=== PATIENT | female | born 1950 | race Caucasian/White ===

== ENCOUNTER → 2020-08-15 | Outpatient (REF) | payer MEDICARE | LOC: M LAB REF 12:36 | PROVIDERS: ATTEND Nurse Practitioner Family | DX: N39.0 Urinary tract infection, site not specified (principal) ==

== ENCOUNTER → 2020-10-25 | Outpatient (REF) | payer MEDICARE ==
[2020-10-25 12:14] LABS: ALT/SGPT 21 U/L (12-78); BLOOD UREA NITROGEN 13 MG/DL (7-18); CALCIUM LEVEL 9.7 MG/DL (8.8-10.2); CARBON DIOXIDE LEVEL 29 MEQ/L (21-32); CHLORIDE LEVEL 105 MEQ/L (98-107); CHOLESTEROL LEVEL 209 MG/DL (<200); CREATININE FOR GFR 0.71 MG/DL (0.55-1.30); GLOMERULAR FILTRATION RATE > 60.0 (>39); GLUCOSE, FASTING 140 MG/DL (70-100); HDL CHOLESTEROL 62 MG/DL (>40); LDL CHOLESTEROL 129 MG/DL (<100); NON-HDL-C 147 MG/DL; POTASSIUM SERUM 4.2 MEQ/L (3.5-5.1); SODIUM LEVEL 139 MEQ/L (136-145); TOTAL PROTEIN 7.4 GM/DL (6.4-8.2); TRIGLYCERIDES LEVEL 91 MG/DL (<150)
[2020-10-25 12:37] LABS: HEMOGLOBIN A1c 6.1 %
== END ==
LOC: M PLALAB 10:02
PROVIDERS: ATTEND Nurse Practitioner Family
DX: Z00.00 Encounter for general adult medical examination without abnormal findings (principal); Z83.3 Family history of diabetes mellitus; Z79.899 Other long term (current) drug therapy

== ENCOUNTER 2020-12-06 12:30 | Emergency (ER) | payer MEDICARE ==
[~2020-12-06] VITALS: Ht 152.4 cm; Wt 83.2 kg
--- NOTE | 2020-12-06 14:15 | REP ---
INDICATION: swelling. COMPARISON: None. TECHNIQUE: Multiple ultrasonographic images of the deep venous structures of the right lower extremity were obtained from the inguinal ligament to the ankle. Venous compression techniques, color doppler imaging, and augmentation techniques were also obtained where appropriate. As per the ACR guidelines the anterior tibial vein can not be effectively evaluated. Only compression techniques in the calf on the peroneal and posterior tibial veins was attempted/performed. FINDINGS: There is no abnormal echogenic material seen within any of the visualized deep venous structures that would suggest acute thrombosis. Coaptation is unremarkable throughout. Doppler interrogation shows an expected response to respiratory variability and augmentation in the thigh. Compression techniques in the calf showed no abnormality. The color flow images show what appears to be a normal vascular pattern throughout the thigh. IMPRESSION: There is no ultrasonographic evidence of deep venous thrombosis involving any of the visualized deep venous structures of the right lower extremity as described above. <Electronically signed by Roverto Yeager > 12/06/20 [id number]
[2020-12-06 16:16] LABS: BASO % 0.3 % (0.0-1.0); EOS # 0.2 10^3/uL (0.0-0.5); EOS % 2.6 % (0.0-3.0); HEMATOCRIT 41.7 % (36.0-47.0); HEMOGLOBIN 13.9 g/dl (12.0-15.5); LYMPH # 1.6 10^3/uL (1.5-5.0); LYMPH % 20.6 % (24.0-44.0); MEAN CORPUSCULAR HGB CONC 33.3 g/dl (32.0-36.5); MEAN CORPUSCULAR VOLUME 92.9 fl (80.0-96.0); MONO # 0.5 10^3/uL (0.0-0.8); MONO % 6.2 % (2.0-8.0); NEUTROPHILS # 5.4 10^3/uL (1.5-8.5); PLATELET COUNT, AUTOMATED 283 10^3/uL (150-450); RED BLOOD COUNT 4.49 10^6/uL (4.00-5.40); WHITE BLOOD COUNT 7.7 10^3/uL (4.0-10.0)
[2020-12-06 16:41] LABS: C REACTIVE PROTEIN QUANTITATIV 0.34 MG/DL (0.00-0.30); CK-MB VALUE MASS 1.5 NG/ML (<3.6); MB/CK RELATIVE INDEX 1.61 (< OR =4)
[2020-12-06 16:51] LABS: ERYTHROCYTE SEDIMENTATION RATE 15 mm/hr (0-30)
--- NOTE | 2020-12-06 17:09 | REP ---
INDICATION: unable to walk, NKI. COMPARISON: None TECHNIQUE: AP frog-lateral views FINDINGS: There is mild asymmetric hip joint space narrowing without prominent marginal osteophytosis. There is no fracture dislocation. IMPRESSION: Chronic changes <Electronically signed by Roverto Yeager > 12/06/20 [id number]
--- NOTE | 2020-12-06 17:12 | REP ---
INDICATION: unable to walk, NKI, pain over patella into tib/fib COMPARISON: None. TECHNIQUE: Five views right knee. FINDINGS: There is no evidence of acute fracture, dislocation, or intrinsic bone disease.There appears to be a small joint effusion. IMPRESSION: No fracture or dislocation. Small joint effusion. <Electronically signed by Byron Tilley > 12/06/20 [id number]
--- NOTE | 2020-12-06 17:15 | REP ---
INDICATION: unable to bear weight, swelling COMPARISON: None. TECHNIQUE: Four views right ankle. FINDINGS: There is no evidence of acute fracture, dislocation, or intrinsic bone disease.Mild spurring of the medial malleolus as well as lateral malleolus. The ankle mortise is anatomic. There is mild posterior and inferior calcaneal spurring. IMPRESSION: No radiographic evidence of fracture or dislocation. <Electronically signed by Byron Tilley > 12/06/20 [id number]
[2020-12-06] MEDS ORDERED: methocarbamoL 500 MG TAB PO ONE ×3 (17:25→20:20)
[2020-12-06] MEDS ORDERED: METH-1164 PO (18:06)
[2020-12-06] MEDS ORDERED: ROLLMIS8 XX ×2 (18:06→18:16)
--- NOTE | 2020-12-06 18:56 | REPVR ---
PROCEDURE INFORMATION: Exam: CT Lumbar Spine Without Contrast Exam date and time: 12/06/2020 5:46 PM Age: 70 years old Clinical indication: Other: New onset difficulty walking and weight bearing TECHNIQUE: Imaging protocol: Computed tomography images of the lumbar spine without contrast. Radiation optimization: All CT scans at this facility use at least one of these dose optimization techniques: automated exposure control; mA and/or kV adjustment per patient size (includes targeted exams where dose is matched to clinical indication); or iterative reconstruction. COMPARISON: [facility] Hip, Ap,Lat RIGHT 12/06/2020 4:15 PM FINDINGS: Vertebrae: 3 mm of grade 1 degenerative anterolisthesis of L4 on L5. No acute fracture seen. Diffuse osseous demineralization. L1-L2: No significant disc protrusion. No severe spinal canal stenosis. No significant neural foraminal narrowing. L2-L3: Mild disc bulge as well as mild to moderate facet arthropathy. Mild central spinal canal and neural foraminal stenoses. L3-L4: Moderate left eccentric diffuse disc bulge, facet arthropathy and ligamentum flavum buckling. Central spinal canal stenosis is [id number]. Mild left neural foraminal stenosis. No significant right neural foraminal narrowing. L4-L5: Anterolisthesis. Diffuse disc bulge with calcification of posterior disc annulus. Marked facet arthropathy and ligamentum flavum buckling. Central spinal canal stenosis is moderate. Lateral recess stenoses are probably severe. Severe left and moderate right neural foraminal stenoses. L5-S1: Mild diffuse disc bulge as well as severe left and moderate right facet arthropathy. No significant central spinal canal stenosis. Mild right neural foraminal stenosis. No significant left neural foraminal narrowing. Mediastinum: Small hiatal hernia. Stomach and bowel: There is colonic diverticulosis. Vasculature: The aorta demonstrates atherosclerosis. Soft tissues: Unremarkable. There is a 1.3 cm cyst in the upper pole of the right kidney. No specific follow-up is indicated. IMPRESSION: 1. No acute findings identified. 2. Grade 1 degenerative anterolisthesis of L4 on L5. 3. High-grade central spinal canal, lateral recess and neural foraminal stenoses at L4-L5. Electronically signed by: Lissa Joseph On 12/06/2020 18:55:17 PM
--- NOTE | 2020-12-06 20:11 | REPVR ---
PROCEDURE INFORMATION: Exam: MR Lumbar Spine Without Contrast Exam date and time: 12/06/2020 7:43 PM Age: 70 years old Clinical indication: Abnormal findings; Abnormal xray or scan of thoracolumbar spine; Additional info: High grade central spinal canal, l4-l5 stenosis TECHNIQUE: Imaging protocol: Multiplanar magnetic resonance images of the lumbar spine without intravenous contrast. COMPARISON: CT Spine, lumbar w/o contrast 12/06/2020 5:45 PM FINDINGS: Vertebrae: 3 mm of grade 1 degenerative anterolisthesis of L4 on L5. No acute fracture seen. Spinal cord: The conus medullaris ends normally. Disc desiccation throughout. No significant disc height loss. Mild multilevel prevertebral spondylosis. L1-L2: Mild disc bulge and facet arthropathy. No stenoses. L2-L3: Asvk-yt-[id number] diffuse disc bulge, facet arthropathy and ligamentum flavum buckling. The central spinal canal remains patent. No significant foraminal stenoses. L3-L4: Mild diffuse disc bulge as well as mild to moderate facet arthropathy and ligamentum flavum buckling. A small left foraminal disc protrusion with high-intensity zone. Central spinal canal stenosis is mild. Mildly limited assessment of the foramina due to motion artifacts. Left neural foraminal stenosis is probably mild. No significant right neural foraminal narrowing. L4-L5: Anterolisthesis. Moderate diffuse disc bulge as well as marked facet arthropathy and ligamentum flavum buckling. A shallow component of soft central disc protrusion measures approximately 3 mm in AP dimension, image 7 series 601. Central spinal canal stenosis is moderate. The lateral recesses are narrowed near the L5 nerve roots, in particular on the right. Severe left and [id number] right neural foraminal stenoses. L5-S1: Mild right eccentric disc bulge as well as severe left and moderate right facet arthropathy. The central spinal canal remains patent. Right lateral recess stenosis is mild. Mild right neural foraminal stenosis. No significant left neural foraminal narrowing. Soft tissues: Unremarkable. IMPRESSION: 1. Images are mildly motion degraded. 2. Grade 1 degenerative anterolisthesis of L4 on L5. 3. Moderate central spinal canal stenosis at L4-L5. The lateral recesses are narrowed near the L5 nerve roots, in particular on the right. Left neural foraminal stenosis is severe. Electronically signed by: Lissa Joseph On 12/06/2020 20:10:48 PM
[2020-12-06 20:27] VITALS: BP 125/84
--- NOTE | 2020-12-07 11:28 | ED PDOC ---
Post-Departure Follow-Up dr paloimno and ashley jasso faxed formal report of mr ls spine for fu Sapna Bland MD Dec 07, 2020 11:28
== END 2020-12-06 21:02 | disposition home or self-care (01) ==
LOC: M ED 12:30
DX: R26.2 Difficulty in walking, not elsewhere classified (principal); M54.17 Radiculopathy, lumbosacral region; M48.061 Spinal stenosis, lumbar region without neurogenic claudication; M43.16 Spondylolisthesis, lumbar region; Z88.0 Allergy status to penicillin

== ENCOUNTER → 2022-01-30 | Outpatient (CLI) | payer MEDICARE ==
[~2022-01-30] MED LIST: METH-1164 PO; ROLLMIS8 XX
[2022-01-30 10:56] LABS: BASO % 0.4 % (0.0-1.0); EOS # 0.2 10^3/uL (0.0-0.5); EOS % 1.8 % (0.0-3.0); HEMATOCRIT 38.9 % (36.0-47.0); HEMOGLOBIN 12.9 g/dl (12.0-15.5); LYMPH # 2.3 10^3/uL (1.5-5.0); LYMPH % 21.5 % (24.0-44.0); MEAN CORPUSCULAR HEMOGLOBIN 31.5 pg (27.0-33.0); MEAN CORPUSCULAR HGB CONC 33.2 g/dl (32.0-36.5); MEAN CORPUSCULAR VOLUME 95.1 fl (80.0-96.0); MONO # 0.7 10^3/uL (0.0-0.8); MONO % 6.4 % (2.0-8.0); NEUTROPHILS # 7.4 10^3/uL (1.5-8.5); NEUTROPHILS % 69.2 % (36.0-66.0); PLATELET COUNT, AUTOMATED 327 10^3/uL (150-450); RED BLOOD COUNT 4.09 10^6/uL (4.00-5.40); WHITE BLOOD COUNT 10.7 10^3/uL (4.0-10.0)
[2022-01-30 11:30] LABS: ALBUMIN 3.9 GM/DL (3.2-5.2); BILIRUBIN,TOTAL 0.4 MG/DL (0.2-1.0); CALCIUM LEVEL 9.7 MG/DL (8.8-10.2); CREATININE FOR GFR 1.22 MG/DL (0.55-1.30); GLOMERULAR FILTRATION RATE 46.1 (>39); POTASSIUM SERUM 4.1 MEQ/L (3.5-5.1); TOTAL PROTEIN 7.9 GM/DL (6.4-8.2)
== END ==
LOC: M PLALAB 08:27
PROVIDERS: ATTEND Nurse Practitioner Family
DX: L03.116 Cellulitis of left lower limb (principal)

== ENCOUNTER → 2023-08-05 | Outpatient (CLI) | payer MEDICARE ==
[2023-08-05 18:02] LABS: HEMOGLOBIN A1c 6.5 % (4.0-6.0)
[2023-08-05 18:14] LABS: ALBUMIN 4.1 G/DL (3.2-5.2); ALKALINE PHOSPHATASE 103 U/L (46-116); ALT/SGPT 21 U/L (7.0-40); AST/SGOT 16 U/L (<34); BILIRUBIN,TOTAL 0.8 MG/DL (0.3-1.2); BLOOD UREA NITROGEN 20 MG/DL (9-23); CALCIUM LEVEL 9.5 MG/DL (8.3-10.6); CARBON DIOXIDE LEVEL 30 MMOL/L (20-31); CHLORIDE LEVEL 106 MMOL/L (98-107); CHOLESTEROL LEVEL 210 MG/DL (<200); CHOLESTEROL RISK RATIO 3.52 (<5); CREATININE FOR GFR 0.74 MG/DL (0.55-1.30); GLOMERULAR FILTRATION RATE > 60.0 (>39); GLUCOSE, FASTING 92 MG/DL (74-106); HDL CHOLESTEROL 59.5 MG/DL (>40); LDL CHOLESTEROL 129.9 MG/DL (<100); NON-HDL-C 150.5 MG/DL; POTASSIUM SERUM 4.5 MMOL/L (3.5-5.1); SODIUM LEVEL 140 MMOL/L (136-145); TOTAL PROTEIN 6.9 G/DL (5.7-8.2); TRIGLYCERIDES LEVEL 103 MG/DL (<150)
== END ==
LOC: M PLALAB 14:51
PROVIDERS: ATTEND Nurse Practitioner Family
DX: R73.03 Prediabetes (principal); E78.00 Pure hypercholesterolemia, unspecified